=== PATIENT | female | born 1975 | race Caucasian/White ===

== ENCOUNTER 2016-09-23 15:51 | Outpatient (CLI) | payer BC ==
[2013-05-29 16:02] VITALS: BP 148/74
== END 2016-09-23 15:52 ==
LOC: POD 15:51
PROVIDERS: ATTEND Podiatrist
DX: G57.61 Lesion of plantar nerve, right lower limb (principal); G57.62 Lesion of plantar nerve, left lower limb
CPT/HCPCS: 64455; 99213

== ENCOUNTER 2018-01-23 14:23 | Emergency (ER) | payer OTHER ==
--- NOTE | 2018-01-23 14:48 | ED Physician Documentation ---
General Adult - HISTORIAN Historian: patient - HPI Stated Complaint: L elbow injury Chief Complaint: General Adult Onset: days ago (1) Timing: still present Severity: moderate Further Comments: yes (Pt was a 42 yo female with L elbow pain after falling backwards in a chair and hitting her elbow on concrete while at work. Pt had numbness in her L forearm and hand.) - ROS CONST: no problems EYES/ENT: none CVS/RESP: none GI/: none MS/SKIN/LYMPH: other (L elbow pain) - PAST HX Past History: none Surgeries/Procedures: BTL, cholecystectomy Allergies/Adverse Reactions: Allergies Allergy/AdvReac Type Severity Reaction Status Date / Time bacitracin Allergy Unknown Verified 01/23/18 14:34 [From Neosporin ([id number])] bacitracin zinc Allergy Unknown Verified 01/23/18 14:34 [From Neosporin ([id number])] neomycin sulfate Allergy Unknown Verified 01/23/18 14:34 [From Neosporin (gut-vfi-dtodw)] polymyxin B Allergy Unknown Verified 01/23/18 14:34 [From Neosporin ([id number]-dno-myzsf)] amoxicillin [Amoxicillin] Allergy Verified 01/23/18 14:34 Home Medications: Ambulatory Orders Medication Instructions Recorded Naproxen Sodium [Aleve] 220 mg PO DAILY PRN u2 09/02/17 Cetirizine HCl [Zyrtec] 10 mg PO DAILY PRN 01/23/18 diphenhydrAMINE HCL [Benadryl] 25 mg PO PRN PRN MDD 3 01/23/18 - SOCIAL HX Smoking History: non-smoker - FAMILY HX Family History: No - VITAL SIGNS Vital Signs: Vital Signs Temp Pulse Resp BP Pulse Ox 148/74 05/29/13 17:03 - REVIEWED ASSESSMENTS Nursing Assessment Reviewed: Yes Vitals Reviewed: Yes Progress - Progress Progress: X-ray L elbow: No visible fracture, dislocation or bone destruction. No joint effusion. Lateral supracondylar calcific tendinosis. Impression: Calcific tendinosis without visible fracture or joint effusion. Sling Aleve or Ibuprofen, as directed. General Adult Physical Exam - PHYSICAL EXAM GENERAL APPEARANCE: mild distress NECK: normal inspection RESPIRATORY: no resp distress, chest non-tender, breath sounds normal CVS: reg rate & rhythm, heart sounds normal BACK: normal inspection SKIN: warm/dry, normal color EXTREMITIES: other (L elbow tenderness, no swelling or redness appreciatedm) NEURO: oriented X3, motor nml, sensation nml Discharge Clincal Impression: L elbow sprain Referrals: Sharee Karimi MD [Primary Care Provider] - Condition: Good Disposition: 01 HOME, SELF-CARE Decision to Admit: NO Decision Time: 15:54
--- NOTE | 2018-01-23 15:27 | Diagnostic Imaging Report ---
[facility] [address] [facility].[address] [address] Report Submission Date: Jan 23, 2018 3:25:51 PM CDT Patient Study Name: REY CASEY Date: Jan 23, 2018 2:56:26 PM CDT Modality Type: DX Gender: F Description: UPPER EXTREMITY : 73 Institution: [facility] Physician: NIC SEVILLA Left elbow 3 views Clinical history: Trauma No visible fracture, dislocation or bone destruction. No joint effusion. Lateral supracondylar calcific tendinosis. Impression: Calcific tendinosis without visible fracture or joint effusion Electronically signed on Jan 23, 2018 3:25:51 PM CDT by: Conor CURIEL
[2018-01-23 16:09] VITALS: BP 127/68
== END 2018-01-23 15:55 | disposition home or self-care (01) ==
LOC: ED 14:23
DX: S53.402A Unspecified sprain of left elbow, initial encounter (principal); W19.XXXA Unspecified fall, initial encounter; Y92.9 Unspecified place or not applicable; Y93.9 Activity, unspecified; Y99.9 Unspecified external cause status
CPT/HCPCS: 73080; 99282

== ENCOUNTER 2018-10-25 09:03 | Emergency (ER) | payer OTHER ==
--- NOTE | 2018-10-25 09:11 | ED Physician Documentation ---
Fall - HISTORIAN Historian: patient - HPI Stated Complaint: left knee pain after fall at work Chief Complaint: Lower Extremity Injury Onset: hours (2) Where: work Context: tripped r: moderate Associated Symptoms:: no loss of consciousness Location of Pain/Injury: lower extremity Injury to Right Extremity: none Injury to Left Extremity: knee, leg Further Comments: yes (She states she slipped at work about 745 am and she reports the impact of the fall was her left knee. She has pain that is "8/10" she did take 800 mg of ibuprofen around 0800. she also did use ice. She has a history of knee issues she had a ACL removed from that knee years ago. She is able to bear weight and walk on the leg but with increasing pain) - ROS CONST: no problems - PAST HX Past History: none Immunizations: UTD Allergies/Adverse Reactions: Allergies Allergy/AdvReac Type Severity Reaction Status Date / Time bacitracin Allergy Unknown Verified 10/25/18 10:07 [From Neosporin (vpi-[id number])] bacitracin zinc Allergy Unknown Verified 10/25/18 10:07 [From Neosporin (ohf-asx-jsxbf)] neomycin sulfate Allergy Unknown Verified 10/25/18 10:07 [From Neosporin (cuj-dqf-ukiah)] polymyxin B Allergy Unknown Verified 10/25/18 10:07 [From Neosporin (elv-ere-udqfv)] amoxicillin [Amoxicillin] Allergy Verified 10/25/18 10:07 Home Medications: Ambulatory Orders Medication Instructions Recorded NK 10/25/18 - SOCIAL HX Smoking History: non-smoker Alcohol Use: none Drug Use: none - FAMILY HX Family History: none - VITAL SIGNS Vital Signs: Vital Signs Temp Pulse Resp BP Pulse Ox 127/68 01/23/18 16:03 - REVIEWED ASSESSMENTS Nursing Assessment Reviewed: Yes Vitals Reviewed: Yes Progress - Progress Progress: 1005: Discussed results and plan. She is agreeable. She states with med and rest pain is "much less" DG Fall Physical Exam - Physical Exam General Appearance: no acute distress, alert Head: non-tender Neck: non-tender, painless ROM Eye: [place] ENT: nml external inspection Resp/CVS: chest non-tender, breath sounds nml, no resp. distress Abdomen: soft, normal bowel sounds, no distension Neuro: oriented x3 Skin: color nml, no rash Back: normal inspection Extremities: atraumatic, nml ROM, painful weight bearing (left knee with pain on flexion and palpation. Pulses + cap refill + sensation + ) Joint: joints nml - [place] Coma Score Eyes Open: Spontaneous Speech: Oriented Motor: Obeys Commands Discharge Clincal Impression: Knee effusion, left Referrals: Sharee Karimi MD [Primary Care Provider] - 2 Days Comments: 1. Continue to use OTC meds as directed for pain as needed 2. Ice and elevate 3. Rest for today 4. Follow up with PCP in 2 days 5. Return to ER for any increasing concerns Condition: Stable Disposition: 01 HOME, SELF-CARE Decision to Admit: NO Date of Decison to Admit: 10/25/18 Decision Time: 10:07
--- NOTE | 2018-10-25 10:04 | Diagnostic Imaging Report ---
ALEXSANDER HERMAN [facility] [address] [facility] [address] [place], [place]. [address] Report Submission Date: October 25, 2018 9:55:55 AM CDT Patient Study Name: REY CASEY Date: October 25, 2018 9:27:36 AM CDT Modality Type: DX Gender: F Description: TIBIA FIBULA 2 VIEW : 73 Institution: [facility] Physician: ALEXSANDER HERMAN Left tibia and fibula History: Status post fall AP and lateral projections of the left tibia and fibula were obtained which demonstrate no evidence for acute fracture or dislocation. Mineralization is normal. Impression: No osseous abnormality. Electronically signed on October 25, 2018 9:55:55 AM CDT by: Carley CURIEL
--- NOTE | 2018-10-25 10:08 | Diagnostic Imaging Report ---
ALEXSANDER HERMAN [facility] [address] [facility] [address] [address] [place], [place]. [address] Report Submission Date: October 25, 2018 9:55:19 AM CDT Patient Study Name: REY CASEY Date: October 25, 2018 9:27:36 AM CDT Modality Type: DX Gender: F Description: KNEE 3 VIEWS : 73 Institution: [facility] Physician: ALEXSANDER HERMAN Left knee History: Status post fall AP, lateral and sunrise views of the left knee demonstrate a trace suprapatellar joint effusion. No osseous abnormalities are noted. Impression: Trace suprapatellar joint effusion. No acute osseous abnormality. Electronically signed on October 25, 2018 9:55:19 AM CDT by: Carley CURIEL
[2018-10-25 10:16] VITALS: BP 142/82
== END 2018-10-25 10:12 | disposition home or self-care (01) ==
LOC: ED 09:03
DX: M25.462 Effusion, left knee (principal)
CPT/HCPCS: 73562; 73590; 99282; 99284